=== PATIENT | female | born 1995 | race African-American/Black ===

== ENCOUNTER 2023-10-14 13:12 | Emergency (ER) | payer OTHER ==
[2023-10-14 13:23] VITALS: BP 122/89; RESP 20; TEMP 99.3; BMI 17.9
[2023-10-14 13:45] VITALS: PULSE 117
[2023-10-14 14:18] LABS: BASO % 0.3 % (0-2.0); EOS % 0.1 % (0-4.5); HEMATOCRIT 36.8 % (32.4-45.2); HEMOGLOBIN 12.2 GM/dL (10.7-15.3); LYMPH % 2.4 % (8-40); MCH 28.6 pg (25.7-33.7); MCHC 33.2 g/dl (32.0-36.0); MEAN CELL VOLUME 86.1 fl (80-96); MEAN PLT VOLUME 10.4 fl (7.5-11.1); NEUT % 87.2 % (42.8-82.8); PLATELET COUNT 164 10^3/uL (134-434); RBC 4.28 M/mm3 (3.60-5.2); RDW 14.9 % (11.6-15.6); WHITE BLOOD COUNT 25.1 K/mm3 (4.0-10.0)
[2023-10-14 14:22] LABS: PH,URINE 5.5 (5.0-8.0); URINE APPEARANCE CLEAR; URINE BILIRUBIN NEGATIVE (NEGATIVE); URINE COLOR YELLOW; URINE GLUCOSE (UA) NEGATIVE (NEGATIVE); URINE KETONE 1+ (NEGATIVE); URINE LEUK ESTERASE TRACE (NEGATIVE); URINE NITRITE NEGATIVE (NEGATIVE); URINE PROTEIN NEGATIVE (NEGATIVE)
[2023-10-14] MEDS ORDERED: ACETAMINOPHEN INJECTION 100 ML IVPB ONE (14:28)
[2023-10-14 14:32] LABS: EPI CELLS 13.7 /uL (0-25.1); HYALINE CASTS 0.29 /uL (0-3.1); URINE BACTERIA 83.5 /uL (0-1359); URINE RBC 10.3 /uL (0-23.9); URINE WBC 20.8 /uL (0-25.8)
[2023-10-14] MEDS: SODIUM CHLORIDE 0.9% 500 ML INFUS.BAG IV ONE (14:34)
[2023-10-14] MEDS: ACETAMINOPHEN 1000 MG/100 ML BAG IVPB ONE (14:34)
[2023-10-14 14:36] LABS: POTASSIUM 3.3 mmol/L (3.5-5.1)
[2023-10-14 14:38] LABS: CALCIUM 9.4 mg/dL (8.5-10.1)
[2023-10-14 14:39] LABS: BLOOD UREA NITROGEN 8.8 mg/dL (7-18)
[2023-10-14 14:43] LABS: BILIRUBIN,TOTAL 3.1 mg/dL (0.2-1)
[2023-10-14 14:53] LABS: ANISOCYTOSIS 0; HELMET CELLS 0; HOWELL-JOLLY BODIES 0; MACROCYTOSIS 0; OVALOCYTE 0; ROULEAU 0; SICKELED CELLS 0; TARGET CELLS 0; TEAR DROP CELLS 0; TOXIC GRANULATION 0
[2023-10-14 15:35] LABS: HIV INTERPRETATION NEGATIVE (NEGATIVE)
== END 2023-10-14 22:41 | disposition home or self-care (01) ==
LOC: JER 13:12
DX: N83.201 Unspecified ovarian cyst, right side (principal); D27.0 Benign neoplasm of right ovary; R11.2 Nausea with vomiting, unspecified
CPT/HCPCS: 36415; 74177-TC; 76830-TC; 80053; 81003; 83605; 84703; 85025; 86803; 87040; 87070; 87086; 87205; 87389; 87491; 87591; 87661; 93005; 93010; 99285-25; J0131; Q9967

== ENCOUNTER 2023-12-08 04:05 | Day surgery (SDC) | payer OTHER ==
[2023-12-06 17:46] VITALS: BMI 18.2
[2023-12-08 07:12] LABS: INR 1.43 (0.83-1.09); PROTHROMBIN TIME (PATIENT) 16.3 SEC (9.7-13.0)
[2023-12-08] MEDS ORDERED: BUPIVACAINE HCL/PF 0.5% (5MG/ML) 10 ML VIAL ONE (07:26)
[2023-12-08] MEDS ORDERED: MIDAZOLAM HCL 2 MG/2 ML SINGLE DOSE VIAL ONE (07:52)
[2023-12-08] MEDS ORDERED: PROPOFOL 40 ML ONE (08:11)
[2023-12-08] MEDS ORDERED: PROPOFOL 20 ML ONE (08:36)
[2023-12-08] MEDS: BUPIVACAINE HCL/PF 0.5% (5MG/ML) 10 ML VIAL IJ ONE ×2 (08:37)
[2023-12-08] MEDS ORDERED: oxyCODONE HCL 5 MG TABLET PO PRN (10:02)
[2023-12-08] MEDS ORDERED: ONDANSETRON 4 MG/2 ML VIAL IVPUSH PRN (10:02)
[2023-12-08] MEDS ORDERED: LACTATED RINGERS SOLUTION 1,000 ML IV SCH (10:15)
[2023-12-08] MEDS: ACETAMINOPHEN INJECTION 100 ML ONE (11:01)
[2023-12-08] MEDS: ACETAMINOPHEN 1000 MG/100 ML BAG IVPB ONE (11:01)
[2023-12-08 11:48] VITALS: RESP 18
[2023-12-08 13:14] VITALS: BP 125/86; PULSE 89; TEMP 98
== END 2023-12-08 12:40 | disposition home or self-care (01) ==
LOC: JASU-SURG 04:05
PROVIDERS: ATTEND Student in an Organized Health Care Education/Training Program
PROC: 0UN04ZZ Release Right Ovary, Percutaneous Endoscopic Approach (ICD-10-PCS; 2023-12-08)
PROC: 0UT04ZZ Resection of Right Ovary, Percutaneous Endoscopic Approach (ICD-10-PCS; principal; 2023-12-08 08:00)
DX: D27.0 Benign neoplasm of right ovary (principal); N73.6 Female pelvic peritoneal adhesions (postinfective)
CPT/HCPCS: 36415; 81025; 85610; 86850; 86900; 86901; 88307-TC; 94760; J0131